=== PATIENT | female | born 1965 | race Caucasian/White ===

== ENCOUNTER 2016-07-11 15:23 | Emergency (ER) | payer OTHER ==
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
[~2016-07-11 15:23] MED LIST: IBUPROFEN PO; IBUPROFEN800 MG PO; LORTAB 5/500 TA1 TA1 PO; NO MEDICATIONS; PHENERGAN PO; VOLTAREN PO; VOLTAREN50 MG PO; VOLTAREN75 MG PO
== END 2016-07-11 16:34 | disposition home or self-care (01) ==
LOC: SED 15:23
DX: S00.83XA Contusion of other part of head, initial encounter (principal); F17.210 Nicotine dependence, cigarettes, uncomplicated; V49.40XA Driver injured in collision with unspecified motor vehicles in traffic accident, initial encounter
CPT/HCPCS: 70450; 99284

== ENCOUNTER 2016-09-11 02:18 | Emergency (ER) | payer OTHER ==
--- NOTE | ~2016-09-11 | CR63 ---
[facility] A Service of [facility] RADIOLOGY TEXT RESULTS PATIENT: ELIAS CHEATHAM LOCATION: SED : 67 UNIT #: [id number] AGE: [address]: Moises Schwartz MD SEX: F ORDER DR: [id number] [place] [id number] E MR#: [id number] Acc #: [id number] NAME: ELIAS CHEATHAM : 1965 SEX: F STUDY DATE/TIME: 09/11/2016 3:11 UNIT: SED ROOM: STUDY DESCRIPTION: CR Chest 2 View Attending Physician: Moises Schwartz M.D. Ordering Physician: Moises Schwartz M.D. Primary Care Physician: David Maguire M.D. MEDICAL IMAGING REPORT This report is preliminary unless electronic signature is present. EXAM Two-view chest INDICATION Chest pain. Right-sided rib pain. Pain with deep inspiration. Positive smoking history. FINDINGS PA and lateral views of the chest without comparison. Heart and mediastinal contour is within normal limits. Lungs are mildly hyperinflated suggesting a component of obstructive lung disease. There is a nodule in the right middle lobe measuring 2.9 cm x 2.8 cm x 2.8 cm. No pleural effusion. IMPRESSION Nodular airspace opacity in the right middle lobe. This could represent a focal pneumonia, however a pulmonary nodule could have a similar appearance. If the patient has symptoms of pneumonia, I would recommend followup radiographs after treatment to further evaluate. Followup is recommended to differentiate a pneumonia from a possible pulmonary neoplasm. Dictated by... Tiago Santa M.D. THIS IS AN ELECTRONICALLY VERIFIED REPORT Tiago Santa M.D. at 09/11/2016 11:23 PM MAME/bina TD: 09/11/2016 05:16 [facility] A Service [facility] RADIOLOGY TEXT RESULTS PATIENT: ELIAS CHEATHAM LOCATION: SED : 67 UNIT #: [id number] AGE: [address]: Moises Schwartz MD SEX: F ORDER DR: JOB #: [id number] MEDICAL IMAGING REPORT Page 1 of 1
[2016-09-11 02:51] LABS: BASOPHIL# 0.2 X10e3 (0-0.3); BASOPHIL% 2.4 % (0-2.5); EOSINOPHIL# 0.4 X10e3 (0-0.7); EOSINOPHIL% 5.3 % (0.0-7.0); HEMATOCRIT 35.5 % (35.0-45.0); HEMOGLOBIN 11.9 gm/dL (12.0-16.0); LYMPHOCYTE# 1.5 X10e3 (1.0-3.5); LYMPHOCYTE% 17.8 % (17.0-45.0); MEAN CORPUSCULAR HEMOGLOBIN 31.1 PG (28-34); MEAN CORPUSCULAR HGB CONC 33.5 g/dL (30-36); MEAN PLATELET VOLUME 8.8 FL (6.5-11.5); MONOCYTE# 0.8 X10e3 (0-1.0); MONOCYTE% 9.6 % (3.0-12.0); NEUTROPHIL# 5.3 X10e3 (1.5-7.1); NEUTROPHIL% 64.9 % (40-75); PLATELET COUNT 222 X10e3 (140-420); RED BLOOD COUNT 3.82 X10e (3.90-5.30); WHITE BLOOD COUNT 8.2 X10e3 (4.0-10.5)
[2016-09-11 02:52] LABS: DIFF IND NO
[2016-09-11 03:03] LABS: BILIRUBIN, DIRECT 0.1 mg/dL (0.0-0.2); BILIRUBIN,INDIRECT 0.2 mg/dL (0.0-0.9); BILIRUBIN,TOTAL 0.3 mg/dL (0.2-2.0); CALCIUM SERUM 8.8 mg/dL (8.4-10.2); CREATININE SERUM 0.5 mg/dL (0.6-1.4); GLOM FILT RATE Estimated 112.9 mL/min (>60); PROTEIN TOTAL SERUM 7.2 g/dL (6.0-8.3)
== END 2016-09-11 03:50 | disposition home or self-care (01) ==
LOC: SED 02:18
PROVIDERS: Emergency Medicine
DX: J18.9 Pneumonia, unspecified organism (principal); M19.90 Unspecified osteoarthritis, unspecified site; F17.200 Nicotine dependence, unspecified, uncomplicated
CPT/HCPCS: 36415; 71020; 80048; 80076; 85025; 85379; 96374; 99284; J1885